=== PATIENT | female | born 1965 | race Caucasian/White ===

== ENCOUNTER → 2017-10-13 | Outpatient (CLI) | payer OTHER ==
[~2017-10-13] MED LIST: FENOGLIDE40 MG PO; LIVALO2 MG PO; MEDROLDOSEPACK PO; PROTONIX40 M1 PO; TESSALON PERLE100 M1 PO; ZPAK PO
== END ==
LOC: M.RAD 08:57
DX: Z12.31 Encounter for screening mammogram for malignant neoplasm of breast (principal)

== ENCOUNTER → 2018-10-21 | Outpatient (CLI) | payer BC | LOC: M.RAD 11:29 | DX: Z12.31 Encounter for screening mammogram for malignant neoplasm of breast (principal) ==

== ENCOUNTER → 2019-03-10 | Outpatient (CLI) | payer BC | LOC: M.ULTRA 08:54 | DX: E04.2 Nontoxic multinodular goiter (principal) ==